=== PATIENT | female | born 1985 | race Caucasian/White ===

== ENCOUNTER 2017-10-03 23:57 | Inpatient (IN) | payer BC ==
[2017-10-04] MEDS: Lactated Ringer's 1,000 ML IV SCH ×3 (00:30→08:17)
[2017-10-04 01:32] VITALS: BMI 25.9
[2017-10-04] MEDS ORDERED: Penicillin G Potassium 5 MILL.UNITS VIAL ONE (02:10)
[2017-10-04] MEDS ORDERED: Promethazine HCl 25 MG/ML VIAL IM PRN (02:10)
[2017-10-04] MEDS ORDERED: Butorphanol Tartrate 1 MG/ML VIAL SLOW IVP PRN (02:10)
[2017-10-04] MEDS ORDERED: NS w/ Oxytocin 10 units 500 ML ONE (02:10)
[2017-10-04] MEDS ORDERED: Ondansetron HCl/PF 4 MG/2 ML Vial IVP PRN ×2 (02:10→17:10)
[2017-10-04 02:21] LABS: Hemoglobin 12.1 g/dL (12.0-16.0); Mean Corpuscular HGB CONC 34.4 g/dL (32.0-36.0); Mean Corpuscular Hemoglobin 30.6 pg (27.0-31.0); Mean Platelet Volume 8.9 fL (7.4-10.4); Platelet Count 188 thou/uL (130-400); RBC Distribution Width 11.9 % (11.5-14.5); Red Blood Cell (RBC) Count 3.95 mill/uL (4.20-5.40); White Blood Cell (WBC) Count 14.7 thou/uL (4.8-10.8)
[2017-10-04] MEDS ORDERED: Misoprostol 200 MCG TAB RC PRN (02:30)
[2017-10-04] MEDS ORDERED: Penicillin G Potassium 5 MILL.UNITS in Sodium Chloride 0.9% 100 ML IVPB SCH (02:30)
[2017-10-04] MEDS ORDERED: HYDROcodone/Acetaminophen 5/325 mg Tablet PO PRN ×2 (02:30)
[2017-10-04] MEDS ORDERED: NS w/ Oxytocin 10 units 500 ML IV SCH ×2 (02:30)
[2017-10-04] MEDS ORDERED: Ibuprofen 800 MG TAB PO PRN (02:30)
[2017-10-04 02:48] LABS: HBSAg Index 0.17 S/CO (0-0.99); Hep B Surf Ag Non-Reactive S/CO (NonReactive)
[2017-10-04 03:53] LABS: Syphilis Antibody Nonreactive (Nonreactive); Syphilis Antibody Index 0.02 S/CO (<1.00 Non-Reactive)
[2017-10-04] MEDS: Penicillin G 2.5 MILL.units 50 ML IVPB SCH ×3 (06:00→17:54)
[2017-10-04] MEDS ORDERED: Penicillin G Potassium 2.5 MILL.UNITS in Sodium Chloride 0.9% 100 ML IVPB SCH (06:00)
[2017-10-04] MEDS ORDERED: DISCONTINUE ALL PREVIOUS NARCOTICS FS SCH (07:15)
[2017-10-04] MEDS ORDERED: Bupivacaine 0.75% 13.4 ML, fentaNYL Citrate/PF 400 MCG in Sodium Chloride 0.9% 78.6 ML EPIDURAL SCH (07:15)
[2017-10-04] MEDS ORDERED: Eucerin (Mineral Oil/Petrolatum,White) 30 gm Jar TOP PRN (08:14)
[2017-10-04] MEDS ORDERED: ePHEDrine/0.9% NaCl/PF SYRINGE 50 mg/10 ml SLOW IVP PRN (08:14)
[2017-10-04] MEDS ORDERED: Acetaminophen 325 MG TAB PO PRN (08:14)
[2017-10-04] MEDS ORDERED: Lactated Ringer's 500 ML IV PRN (08:14)
[2017-10-04] MEDS ORDERED: Naloxone HCl 0.4 mg/ml Vial IVP PRN ×2 (08:14)
[2017-10-04] MEDS ORDERED: Fentanyl 4mcg/Marcaine 0.1% Cassette 100 ML EPIDURAL SCH (08:15)
[2017-10-04] MEDS ORDERED: Communication Order-Pharmacy FS SCH (08:15)
--- NOTE | 2017-10-04 09:04 | PDOC.LDHP ---
Labor and Delivery H&P Chief complaint: scheduled induction HPI: Pt is a 32yo G1 @ 39+ weeks here for scheduled elective IOL. Current gestational age (weeks): 39 Due date: 10/05/17 Dating criteria: last menstrual period, first trimester ultrasound Grav: 1 Para: 0 Current complications: none Abnormal US findings: No Current medications: pre-manjula vitamins Previous surgical history: none, other (breast reduction) Allergies/Adverse Reactions: Allergies Allergy/AdvReac Type Severity Reaction Status Date / Time No Known Allergies Allergy Verified 10/04/17 01:45 Social history: none - Physical Exam Vital signs reviewed and normal: yes General: resting Heart: RRR Lungs: CTAB Abdomen: gravid Extremeties: no edema FHT: category 1 - Vaginal Exam cm dilated: 6 Effacement: 90% Station: 0 - OB Labs Blood type: A RH: negative Antibody Screen: negative HIV: negative RPR: negative HEPSAg: negative GBS: positive Rubella: immune - Assessment L&D Assessment: elective induction at term - Plan Plan: admit to L&D, GBS antibiotic prophylaxis, informed consent obtained, anesthesia consult for pain management
[2017-10-04] MEDS ORDERED: Lidocaine 1% (PF) 30 ML VIAL ONE (12:06)
[2017-10-04] MEDS: NS / Oxytocin 40 units/1000ml 1,000 ML IV SCH ×2 (13:50→15:39)
--- NOTE | 2017-10-04 15:14 | PDOC.OPDEL ---
OB Operative/Delivery Note Delivery Dr/Surgeon: Giles Pre-Delivery Diagnosis: elective induction Procedure/Post Delivery Dx: spontaneous vaginal delivery Weeks gestation: 39 - Additional Findings/Plan Placenta delivered: spontaneous Repaired Obstetrical Laceration: 1st degree Estimated blood loss: 300ml Compilations/Other Findings: 1. Shoulder dystocia, approx 45-60 sec relieved w McRobert's and suprapubic pressure. Left UE anterior. 2. Large vaginal mucosal tag, 2.5cm in length, removed at request of pt w taoist of anatomy. Post delivery plan: routine recovery
[2017-10-04] MEDS ORDERED: Acetaminophen/Codeine 30-300mg Tablet PO PRN ×2 (17:10)
[2017-10-04] MEDS ORDERED: Bisacodyl 10 MG SUPP PR PRN (17:10)
[2017-10-04] MEDS ORDERED: Milk Of Magnesia 30 ML UDCUP PO PRN (17:10)
[2017-10-04] MEDS ORDERED: Adacel (T-DAP) 0.5 ML VIAL IM ONE (17:10)
[2017-10-04] MEDS ORDERED: Lanolin Ointment 7 GM TUBE TOP PRN (17:10)
[2017-10-04] MEDS ORDERED: NS / Oxytocin 40 units/1000ml 1,000 ML IV SCH (17:10)
[2017-10-04] MEDS ORDERED: Benzocaine/Menthol 20-0.5% 60 ML CAN TOP PRN (17:10)
[2017-10-04] MEDS ORDERED: diphenhydrAMINE 25 MG CAP PO PRN (17:10)
[2017-10-04] MEDS: Ibuprofen 800 MG TAB PO SCH (17:35)
[2017-10-04] MEDS ORDERED: Ferrous Sulfate 325 MG TAB PO SCH (17:45)
[2017-10-05] MEDS: Ibuprofen 800 MG TAB PO SCH ×4 (00:01→21:36)
[2017-10-05] MEDS: Docusate Calcium (SURFAK) 240 MG CAP PO SCH ×3 (01:16→21:36)
[2017-10-05 05:10] LABS: Hemoglobin 10.2 g/dL (12.0-16.0); Mean Corpuscular HGB CONC 33.8 g/dL (32.0-36.0); Mean Corpuscular Hemoglobin 30.4 pg (27.0-31.0); Mean Corpuscular Volume 90.1 fl (81.0-99.0); Mean Platelet Volume 8.4 fL (7.4-10.4); Platelet Count 149 thou/uL (130-400); Red Blood Cell (RBC) Count 3.35 mill/uL (4.20-5.40); White Blood Cell (WBC) Count 20.9 thou/uL (4.8-10.8)
[2017-10-05] MEDS: Prenatal Vitamin 1 TAB PO SCH (09:07)
[2017-10-05] MEDS: Ferrous Sulfate 325 MG TAB PO SCH ×2 (09:08→17:28)
--- NOTE | 2017-10-05 10:30 | PDOC.PP ---
Post Progress Note Post Day #: 1 Subjective: breast feeding, min lochia, no pain, doing well PO intake tolerated: yes Flatus: yes Ambulation: yes Vital Signs (12 hours) Temp Pulse Resp BP 10/05/17 09:00 97.8 F 79 18 118/70 10/05/17 04:40 98.0 F 70 18 111/68 10/05/17 00:00 98.6 F 75 16 114/70 Weight Weight 161 lb - Physical Examination General: NAD Respiratory: non-labored breathing Skin: no rash Neurological: no gross focal deficits Psychiatric: A&Ox3, normal affect Result Diagrams: 10/05/17 04:54 Additional Labs: Post Labs Blood Type A NEGATIVE 10/04/17 00:55 Hep Bs Antigen Non-Reactive S/CO (NonReactive) 10/04/17 00:55 (1) Vaginal delivery Code(s): O80 - ENCOUNTER FOR FULL-TERM UNCOMPLICATED DELIVERY Status: Acute - Assessment/Plan PPD1 doing well, no concerns.
[2017-10-05] MEDS ORDERED: Bupivacaine/Epinephrine 0.25% 30 ML VIAL ONE (15:35)
[2017-10-06] MEDS: Ibuprofen 800 MG TAB PO SCH ×2 (05:58→13:59)
--- NOTE | 2017-10-06 06:18 | PDOC.PP ---
Post Progress Note Post Day #: PPD#2 Subjective: No c/o. Ready for home. PO intake tolerated: yes Ambulation: yes Vital Signs (12 hours) Temp Pulse Resp BP 10/05/17 20:00 98.1 F 75 18 108/62 Weight Weight 73.028 kg - Physical Examination General: NAD Abdominal: no distention Psychiatric: A&Ox3, normal affect Result Diagrams: 10/05/17 04:54 Additional Labs: Post Labs Blood Type A NEGATIVE 10/04/17 00:55 Hep Bs Antigen Non-Reactive S/CO (NonReactive) 10/04/17 00:55 - Assessment/Plan DC home. Precautions. RTC in [address] Skaggs.
[2017-10-06 07:48] VITALS: BP 108/68; TEMP 98.6
[2017-10-06] MEDS: Ferrous Sulfate 325 MG TAB PO SCH (09:40)
[2017-10-06] MEDS: Prenatal Vitamin 1 TAB PO SCH (09:40)
[2017-10-06] MEDS: Docusate Calcium (SURFAK) 240 MG CAP PO SCH (09:40)
== END 2017-10-06 18:18 | disposition home or self-care (01) | DRG 775 ==
LOC: L&D 23:57 → 3SW 10-04 16:53
PROVIDERS: ADMIT Obstetrics & Gynecology; ATTEND Obstetrics & Gynecology
PROC: 10E0XZZ Delivery of Products of Conception, External Approach (ICD-10-PCS; principal; 2017-10-04)
PROC: 0UBGXZZ Excision of Vagina, External Approach (ICD-10-PCS; 2017-10-04)
PROC: 0HQ9XZZ Repair Perineum Skin, External Approach (ICD-10-PCS; 2017-10-04)
PROC: 3E033VJ Introduction of Other Hormone into Peripheral Vein, Percutaneous Approach (ICD-10-PCS; 2017-10-04)
DX: O70.0 First degree perineal laceration during delivery (principal); Z37.0 Single live birth; O66.0 Obstructed labor due to shoulder dystocia; Z3A.39 39 weeks gestation of pregnancy; O99.824 Streptococcus B carrier state complicating childbirth; L91.8 Other hypertrophic disorders of the skin
CPT/HCPCS: 36415; 51702; 85027; 86780; 86850; 86870; 86900; 86901; 87340; J0595; J2001; J2405; J2540; J3010; J7050

== ENCOUNTER 2020-05-21 08:05 | Outpatient (CLI) | payer OTHER ==
[2020-05-21 22:14] LABS: SARS-CoV-2 PCR by NAA Not Detected (NotDetected)
== END 2020-05-21 08:06 | disposition home or self-care (01) ==
LOC: LABBT 08:05
PROVIDERS: ATTEND Obstetrics & Gynecology
DX: Z01.812 Encounter for preprocedural laboratory examination (principal); Z20.822 Contact with and (suspected) exposure to COVID-19
CPT/HCPCS: 87635; U0003; U0005

== ENCOUNTER 2020-05-24 05:30 | Inpatient (IN) | payer OTHER ==
[2020-05-24] MEDS ORDERED: Lidocaine 1% (PF) 30 ML VIAL SC PRN (06:46)
[2020-05-24] MEDS ORDERED: Ibuprofen 800 MG TAB PO PRN (06:46)
[2020-05-24] MEDS ORDERED: hydrALAZINE 20 MG/ML VIAL SLOW IVP PRN ×2 (06:46→14:50)
[2020-05-24] MEDS ORDERED: Butorphanol Tartrate 1 MG/ML VIAL SLOW IVP PRN (06:46)
[2020-05-24] MEDS ORDERED: HYDROcodone/Acetaminophen 5/325 mg Tablet PO PRN ×4 (06:46→14:50)
[2020-05-24] MEDS ORDERED: Ondansetron PF 4 MG/2 ML Vial IVP PRN (06:46)
[2020-05-24] MEDS ORDERED: Promethazine HCl 25 MG/ML VIAL IM PRN (06:46)
[2020-05-24 06:56] VITALS: BMI 25.8
[2020-05-24] MEDS ORDERED: NS w/ Oxytocin 30 units 500 ML IV PRN (07:15)
[2020-05-24 07:20] LABS: Hemoglobin 10.9 g/dL (12.0-16.0); Mean Corpuscular HGB CONC 33.8 g/dL (32.0-36.0); Mean Corpuscular Hemoglobin 28.9 pg (27.0-31.0); Mean Corpuscular Volume 85.4 fL (78.0-98.0); Platelet Count 180 thou/uL (130-400); RBC Distribution Width 12.1 % (11.5-14.5); Red Blood Cell (RBC) Count 3.79 mill/uL (4.20-5.40); White Blood Cell (WBC) Count 10.6 thou/uL (4.8-10.8)
[2020-05-24] MEDS: Lactated Ringer's 1,000 ML IV SCH ×2 (07:23→08:17)
[2020-05-24 08:03] LABS: Syphilis Antibody Nonreactive (Nonreactive); Syphilis Antibody Index 0.02 S/CO (<1.00 Non-Reactive)
[2020-05-24 08:03] LABS: HBSAg Index 0.19 S/CO (0-0.99); Hep B Surf Ag Non-Reactive S/CO (NonReactive)
[2020-05-24] MEDS ORDERED: Fentanyl 4 mcg/Bup 0.1% Cadd 100 ML ONE (08:48)
[2020-05-24] MEDS ORDERED: Bupivacaine 0.25% HCL 30 ML VIAL ONE (11:30)
[2020-05-24] MEDS ORDERED: Lidocaine 2% PF 5 ML VIAL ONE (11:30)
--- NOTE | 2020-05-24 12:01 | PDOC.LDPN ---
Labor & Delivery Progress Note - Subjective Subjective: painful contractions - Objective Vital signs reviewed and normal: yes General: breathing through contractions Dilation: 9 Effacement: 90% Station: 1+ FHT: category 1 - Assessment (1) 39 weeks gestation of Code(s): Z3A.39 - 39 WEEKS GESTATION OF Current Visit: Yes Status: Acute Plan: continue plan of care -: Anticipate /
--- NOTE | 2020-05-24 12:46 | PDOC.OPDEL ---
OB Operative/Delivery Note Delivery Dr/Surgeon: Giles Pre-Delivery Diagnosis: elective induction Procedure/Post Delivery Dx: spontaneous vaginal delivery Weeks gestation: 39 Anesthesia: epidural - Findings A Sex: male - Additional Findings/Plan Placenta delivered: manual removal (after avulsion of marginally inserted cord) Repaired Obstetrical Laceration: none Estimated blood loss: <100ml Compilations/Other Findings: separation of cord during the 3rd stage, placenta manually removed intact, marginal cord insertion noted Post delivery plan: routine recovery
[2020-05-24] MEDS ORDERED: Preparation H Ointment 28 GM TUBE PR PRN (14:50)
[2020-05-24] MEDS ORDERED: NS w/ Oxytocin 30 units 500 ML IV SCH (14:50)
[2020-05-24] MEDS ORDERED: Bisacodyl 10 MG SUPP PR PRN (14:50)
[2020-05-24] MEDS ORDERED: Lanolin Ointment 7 GM TUBE TOP PRN (14:50)
[2020-05-24] MEDS ORDERED: Milk Of Magnesia 30 ML UDCUP PO PRN (14:50)
[2020-05-24] MEDS ORDERED: Benzocaine-Menthol 82.5 ML CAN TOP PRN (14:50)
[2020-05-24] MEDS ORDERED: Adacel (T-DAP) 0.5 ML SYRINGE IM ONE (14:50)
[2020-05-24] MEDS: Ferrous Sulfate 325 MG TAB PO SCH (17:36)
[2020-05-24] MEDS: Ibuprofen 800 MG TAB PO SCH ×2 (17:36→20:27)
[2020-05-24] MEDS: Docusate Calcium (SURFAK) 240 MG CAP PO SCH (20:27)
[2020-05-25] MEDS: Ibuprofen 800 MG TAB PO SCH ×2 (05:03→13:22)
[2020-05-25] MEDS: Docusate Calcium (SURFAK) 240 MG CAP PO SCH (08:57)
[2020-05-25] MEDS: Ferrous Sulfate 325 MG TAB PO SCH ×2 (08:57→13:46)
[2020-05-25] MEDS ORDERED: Prenatal Vitamin 1 TAB PO SCH (09:00)
[2020-05-25 12:12] VITALS: BP 122/68; TEMP 98.9
--- NOTE | 2020-05-25 13:36 | PDOC.PP ---
Post Progress Note Post Day #: 1 Subjective: doing well, working on latch, normal lochia, would like to DC home today PO intake tolerated: yes Flatus: yes Ambulation: yes Vital Signs (12 hours) Temp Pulse Resp BP Pulse Ox 05/25/20 11:40 98.9 F 68 18 122/68 05/25/20 08:15 97.9 F 71 18 129/70 98 05/25/20 05:00 98.2 F 69 18 119/65 Weight Weight 160 lb - Physical Examination General: NAD Respiratory: non-labored breathing Abdominal: no distention Fundus firm & at: below umb Psychiatric: A&Ox3, normal affect Result Diagrams: 05/24/20 07:07 Additional Labs: Post Labs Hep Bs Antigen Non-Reactive S/CO (NonReactive) 05/24/20 07:10 Blood Type A NEGATIVE 05/24/20 07:06 (1) 39 weeks gestation of Code(s): Z3A.39 - 39 WEEKS GESTATION OF Status: Acute (2) Vaginal delivery Code(s): O80 - ENCOUNTER FOR FULL-TERM UNCOMPLICATED DELIVERY Status: Acute - Assessment/Plan PPD1 doing well, plan for DC after consult.
== END 2020-05-25 17:15 | disposition home or self-care (01) | DRG 807 ==
LOC: L&D 06:28 → 3SW 15:04
PROVIDERS: ADMIT Obstetrics & Gynecology; ATTEND Obstetrics & Gynecology
PROC: 10E0XZZ Delivery of Products of Conception, External Approach (ICD-10-PCS; principal; 2020-05-24)
DX: O69.89X0 Labor and delivery complicated by other cord complications, not applicable or unspecified (principal); Z37.0 Single live birth; Z20.822 Contact with and (suspected) exposure to COVID-19; Z3A.39 39 weeks gestation of pregnancy
CPT/HCPCS: 51702; 85027; 86780; 86850; 86900; 86901; 87340; J0595; J2001; J2405; J2590; S0020